=== PATIENT | female | born 1945 | race Caucasian/White ===

== ENCOUNTER → 2017-11-15 18:01 | Outpatient (CLI) | payer MEDICARE ==
[2009-10-01 11:10] VITALS: BMI 22.1
== END | disposition home or self-care (01) ==
LOC: D.MAMMO 11-03 13:45
DX: Z12.31 Encounter for screening mammogram for malignant neoplasm of breast (principal)

== ENCOUNTER → 2019-06-20 15:09 | Outpatient (CLI) | payer OTHER ==
[2009-10-01 11:10] VITALS: BMI 22.1
== END | disposition home or self-care (01) ==
LOC: D.MRI 15:09
PROVIDERS: ATTEND Family Medicine
DX: M25.561 Pain in right knee (principal)

== ENCOUNTER 2019-09-30 19:00 | Outpatient (CLI) | payer OTHER ==
[2009-10-01 11:10] VITALS: BMI 22.1
== END 2019-09-30 23:59 | disposition home or self-care (01) ==
LOC: D.MAMMO 19:00
PROVIDERS: ATTEND Obstetrics & Gynecology
DX: Z12.31 Encounter for screening mammogram for malignant neoplasm of breast (principal)